=== PATIENT | female | born 2000 | race Two or more races ===

== ENCOUNTER 2024-07-21 15:01 | Emergency (ER) | payer MEDICAID, OTHER ==
[~2024-07-21] VITALS: Ht 167.6 cm; Wt 68.0 kg
[2024-07-21] MEDS: SODIUM CHLORIDE 0.9% 1,000 ML IV ONE (15:30)
--- NOTE | 2024-07-21 15:38 | ED.PDOC ---
GI ASSESSMENT HPI Comments HPI: Poor Historian. 24-year-old female presents to emergency department for one day history of left- sided abdominal pain constant nonradiating no alleviating or precipitating factors. She points to her left upper quadrant area and somewhat left mid abdomen as well. Patient states having associated nausea and vomiting no nbilious nonbloody. Denies any other acute symptoms. Patient is otherwise healthy. Patient denies . Onset of symptoms yesterday. Past Medcial History: Denies any Past Surgical History: Tonsillectomy REVIEW OF SYSTEMS: CONSTITUTIONAL: Denies acute: fever, diaphoresis, chills, HEAD: Denies acute: headache, photophobia Eyes: Denies acute: Double vision, vision loss, eye pain, eye discharge. EARS: Denies acute: tinnitus, hearing loss, ear discharge, ear pain, THROAT: Denies acute: sore throat, swelling, difficulty swallowing , pain with swallowing, change in voice. NECK: Denies acute: neck pain, neck swelling, stiff neck. HEART: Denies acute : chest pain, palpitations, LUNGS: Denies acute: SOB, wheezing, cough, hemoptysis ABDOMEN: Denies acute: diarrhea, melena , hematemesis, hematochezia SKIN: Denies acute: rash, redness, lesions, itchiness. EXTREMITIES: Denies acute: calf pain, numbness, tingling, weakness, denies pain in extremity. Denies acute: Low back pain. Neuro: Denies acute: focal neurological deficit, motor or sensory focal neurological deficit, tremors, seizure like activity, confusion, dizziness, change in mental status, loss of bowel or bladder function, cauda equina like symptoms. : Denies acute: dysuria, hematuria, flank pain, increase in urinary frequency. PSYCH: Denies acute: hallucination, suicidal ideation, homicidal ideation. FEMALE: Denies acute: abnormal vaginal bleeding, foul odor, unusual discharge. PHYSICAL EXAM: General: no acute distress, awake and alert. Head: normocephalic, atraumatic. Neck: supple, trachea is midline, no swelling. Throat: Normal phonation. Eyes:, no erythema, no purulent discharge, no proptosis, no icterus. Heart: regular rate, regular rhythm, no significant murmur appreciated. Lungs: no apparent respiratory distress, Able to speak in full sentences. No wheezing, no rhonchi, no crackles. No stridors Clear to auscultation bilaterally. Abdomen: Left upper quadrant and left mid abdomen tender to palpation, non distended, soft, no guarding, no rebound, + bowel sounds. Neuro: Awake, Alert, oriented to name, self, situation, follows commands GCS=15. Speech is normal. Skin: no petechia, no purpura, no cyanosis, non-pale, not jaundice. Lower extremities: --no - Pitting edema no deformity, no focal swelling, no calf TTP. Makes eye contact. moves all four extremities. Face: no apparent facial droop. No CVA tenderness to percussion bilaterally. Ambulating in the ED independently. Chief Complaint: Abdominal Pain Time Seen by MD: 15:20 Reviewed Notes: Nurses Notes, Medications, Allergies Allergies: Coded Allergies: NO KNOWN ALLERGIES (Unverified , 07/21/24) Home Meds Active Scripts Ondansetron Odt 4MG Tab (ZOFRAN PO) 4 Mg Tb, 4 MG PO Q8HPRN PRN for 3 Days, #9 TAB ODT TAB-DISSOLVE IN MOUTH, THEN SWALLOW Prov:DARNELL CHANCE DO 07/21/24 Information Source: Patient Mode of Arrival: Ambulatory Was a procedure done? Was a procedure done?: No X-Ray, Labs, Meds, VS Vital Signs Date Time Temp Pulse Resp B/P (MAP) Pulse Ox O2 Delivery O2 Flow Rate FiO2 07/21/24 18:44 98.2 96 18 101/76 (84) 100 98.2 07/21/24 17:55 98.2 89 16 129/76 (93) 99 98.2 07/21/24 16:40 98.4 77 16 124/78 (93) 97 98.4 07/21/24 16:40 77 16 98 Room Air 07/21/24 15:52 98.1 87 16 118/80 (93) 98 Lab Test 07/21/24 23:14 07/21/24 15:34 07/21/24 15:15 Range/Units White Blood Count 13.6 H 15.0 H 4.4-10.8 10^3/uL Red Blood Count 4.59 4.81 4.0-5.20 10^6/uL Hemoglobin 13.5 14.2 12.2-16.2 g/dL Hematocrit 41.3 43.1 36.0-46.0 % Mean Corpuscular Volume 90.1 89.5 80.0-100.0 fL Mean Corpuscular Hemoglobin 29.4 29.5 28.0-32.0 pg Mean Corpuscular Hemoglobin Concent 32.6 33.0 32.0-36.0 g/dL Red Cell Distribution Width 12.6 12.6 11.8-14.3 % Platelet Count 419 408 140-450 10^3/uL Mean Platelet Volume 7.5 7.4 6.9-10.8 fL Neutrophils (%) (Auto) 86.8 H 90.1 H 37.0-80.0 % Lymphocytes (%) (Auto) 9.2 L 7.1 L 10.0-50.0 % Monocytes (%) (Auto) 3.7 2.4 0.0-12.0 % Eosinophils (%) (Auto) 0.0 0.0 0.0-7.0 % Basophils (%) (Auto) 0.3 0.4 0.0-2.0 % Neutrophils # (Auto) 11.8 H 13.5 H 1.6-8.6 10 ^3/uL Lymphocytes # (Auto) 1.3 1.1 0.4-5.4 10 ^3/uL Monocytes # (Auto) 0.5 0.4 0-1.3 10 ^3/uL Eosinophils # (Auto) 0 0 0-0.8 10 ^3/uL Basophils # (Auto) 0 0.1 0-0.2 10 ^3/uL Nucleated Red Blood Cells 0.0 0.0 % Sodium Level 136 136-145 mmol/L Potassium Level 4.5 3.5-5.1 mmol/L Chloride Level 101 98-107 mmol/L Carbon Dioxide Level 24 20-31 mmol/L Anion Gap 11 5-15 Blood Urea Nitrogen 14 9-23 mg/dL Creatinine 0.84 0.550-1.02 mg/dL Glomerular Filtration Rate Calc 100 >90 mL/min BUN/Creatinine Ratio 16.7 10.0-20.0 Serum Glucose 102 74-106 mg/dL Lactic Acid Level 1.4 0.4-2.0 mmol/L Calcium Level 10.5 H 8.7-10.4 mg/dL Total Bilirubin 0.7 0.2-1.0 mg/dL Aspartate Amino Transferase (AST) 28 13-40 U/L Alanine Aminotransferase (ALT) 39 7-40 U/L Alkaline Phosphatase 90 46-116 U/L Troponin I High Sensitivity < 3 L </=34 ng/L Total Protein 8.0 5.7-8.2 g/dL Albumin 5.0 H 3.2-4.8 g/dL Lipase 36 12-53 U/L Urine Color Yellow Yellow Urine Clarity Turbid H Clear Urine pH 5.5 5.0-9.0 Urine Specific [place] 1.027 1.001-1.035 Urine Protein Trace H Negative Urine Ketones 4+ H Negative Urine Blood 1+ H Negative /uL Urine Nitrite Negative Negative Urine Bilirubin Negative Negative Urine Urobilinogen Normal Negative mg/dL Urine Leukocyte Esterase Trace Negative /uL Urine RBC 3 0 - 4 /hpf Urine WBC 5 0 - 5 /hpf Urine Squamous Epithelial Cells Mod <5 /hpf Urine Bacteria None seen None Seen /hpf Urine Mucus Few None Seen Urine Glucose Normal Normal mg/dL Urine Test Negative Negative Urine Opiates Screen Neg NEGATIVE Urine Fentanyl Screen Neg NEGATIVE Urine Barbiturates Screen Neg NEGATIVE Urine Phencyclidine Screen Neg NEGATIVE Urine Amphetamines Screen Neg NEGATIVE Urine Benzodiazepines Screen Neg NEGATIVE Urine Cocaine Screen Neg NEGATIVE Urine Cannabinoids Screen Pos NEGATIVE Current Medications Medications (Trade) Dose Ordered Sig/Pennie Route Start Time Stop Time Status Last Admin Sodium Chloride 1,000 ml @ 1,000 mls/hr Q1H ONCE IV 07/21/24 15:30 07/21/24 16:29 DC 07/21/24 15:30 Ondansetron HCl (Zofran) 8 mg ONCE ONCE IV 07/21/24 15:30 07/21/24 15:31 DC 07/21/24 16:36 Ceftriaxone Sodium 50 ml @ 100 mls/hr ONCE ONCE IV 07/21/24 18:00 07/21/24 18:29 DC 07/21/24 18:18 Acetaminophen/ Hydrocodone Bitart ([place] 5/325MG Tab) 1 tab ONCE ONCE PO 07/21/24 18:00 07/21/24 18:08 DC 07/21/24 18:15 Ketorolac Tromethamine (Toradol Injection) 30 mg ONCE ONCE IV 07/21/24 22:00 07/21/24 22:01 DC 07/21/24 21:59 [facility] [address] [facility] [address] Ph: [phone] DIAGNOSTIC IMAGING Diagnostic Imaging Report : [id number] Signed PATIENT: MARIBEL BRAVO ACCT: [id number] UNIT: [id number] : 2000 LOC: ER ROOM / BED: / AGE / SEX: 24 / F ADM STATUS: REG ER SERVICE 1523 ORDERING PHYSICIAN: DARNELL CHANCE DO PROCEDURE(s): ABPL - CT AB PEL WO CON-NO ORAL OR IV REASON: L sided abd pain ORDER NUMBER(s): [id number], ACCESSION NUMBER(s): [id number] CT ABDOMEN AND PELVIS WITHOUT CONTRAST CLINICAL HISTORY: L sided abd pain TECHNIQUE: Multiple contiguous axial images of the abdomen and pelvis without intravenous contrast. The images were reformatted degenerate coronal and sagittal reconstructions. All CT scans at this medical facility are performed using dose modulation techniques as appropriate to a performed exam including the following:Automated exposure control was utilized; adjustment of the MA and/or KV according to patient size; and use of iterative reconstruction technique. Radiation Dose Information: CT Dose: CTDI volume is 7 mGy. Dose-length product is 363 mGy*cm Comparison: None FINDINGS: Evaluation of the abdomen and pelvis is limited without intravenous contrast. The liver, gallbladder, pancreas, kidneys, adrenal glands, and spleen appear within normal limits. There is no gross evidence of abdominal lymphadenopathy. There is no free fluid or free air. The stomach grossly appears unremarkable. The small and large bowel loops demonstrate normal caliber. There are scattered diverticula in the colon without evidence of acute diverticulitis. The abdominal aorta and IVC appear within normal limits. The bladder appears unremarkable for the degree of distention. Pelvic organ appears within normal limits. There is no gross evidence of a pelvic mass. There is free fluid in the cul-de-sac. Lung bases are clear. There is no acute osseous abnormality. IMPRESSION: 1. Nonspecific free fluid in the pelvic cul-de-sac. 2. Otherwise, there is no acute process in the abdomen and pelvis. HS:Y ATED BY: ANTONIO CISNEROS MD DICTATED DATE/TIME: 07/21/24 9758 SIGNED BY: ANTONIO CISNEROS MD SIGNED DATE/TIME: 07/21/24 1734 CC: Time of 1ST Reevaluation: 22:24 Reevaluation 1ST: Improved Time of 2ND Reevaluation: 00:08 Reevaluation 2ND: Resolved Patient Education/Counseling: Diagnosis, Treatment Family Education/Counseling: Other Comments MDM: Patient presented with the above HPI.----- L sided abdominal pain -workup was initiated. patient was found with the above mentioned diagnosis. The following tests / medications were ordered: [place], blood culture, Rocephin, urine test, Zofran, IV fluids, CT abdomen and pelvis w/o contrast, EKGx1, drug screen, lipase,lactic acid, troponin x1, UA, CMP, CBC, urine , Patient ED course and VS have been stabilized. Patient has been reassessed in the ED and remained in a stable condition. Patient has been observed in the ED adequate length of time to insure improvement/stability. Escalation of care considered: Consideration of escalation to observation or admission. patient was ADMITTED to the medicine team for further evaluation and treatment of their presentation. patient was DISCHARGED after further evaluation and treatment of their presentation. All the reports of any imaging studies that were ordered by myself were reviewed by myself. Departure 1 Departure Time of Disposition: 22:24 Impression: Primary Impression: Abdominal pain Additional Impression: Nausea and vomiting Disposition: HOME / SELF CARE / HOMELESS Condition: Stable Additional Instructions: Additional discharge instructions: You MUST follow-up with your primary care/family doctor in 1 to 2 days. If you are unable to see your primary care/family doctor, please return to our emergency room for re-assessment and re-evaluation in 1 to 2 days. Return to the emergency room here in our facility or to the nearest ER [facility] if your symptoms change or worsen. CONSULTATIONS: you MUST Follow-up for consultation as soon as possible with: .-gastroenterology and OB Gyne doctor in 1-2 days. Please call for appointment. You MUST call the consultants office yourself to make an appointment. You may need to arrange that through your insurance and/or your primary/family doctor. If you are unable to see the supervisor home energy consultant in 1 to 2 days, you must return to our emergency room (or any other ER of your choice) for re-assessment and re- evaluation. Adequate fluid hydration. Avoid fatty greasy spicy food. Avoid caffeinated products with avoid NSAIDs. Below is a copy of your radiological report for follow up: [place] [address] Ph: [phone] DIAGNOSTIC IMAGING Diagnostic Imaging Report : [id number] Signed PATIENT: MARIBEL BRAVO ACCT: [id number] UNIT: [id number] : 2000 LOC: ER ROOM / BED: / AGE / SEX: 24 / F ADM STATUS: REG ER SERVICE 1523 ORDERING PHYSICIAN: DARNELL CHANCE DO PROCEDURE(s): ABPL - CT AB PEL WO CON-NO ORAL OR IV REASON: L sided abd pain ORDER NUMBER(s): [id number], ACCESSION NUMBER(s): [id number] CT ABDOMEN AND PELVIS WITHOUT CONTRAST CLINICAL HISTORY: L sided abd pain TECHNIQUE: Multiple contiguous axial images of the abdomen and pelvis without intravenous contrast. The images were reformatted degenerate coronal and sagittal reconstructions. All CT scans at this medical facility are performed using dose modulation techniques as appropriate to a performed exam including the following:Automated exposure control was utilized; adjustment of the MA and/or KV according to patient size; and use of iterative reconstruction technique. Radiation Dose Information: CT Dose: CTDI volume is 7 mGy. Dose-length product is 363 mGy*cm Comparison: None FINDINGS: Evaluation of the abdomen and pelvis is limited without intravenous contrast. The liver, gallbladder, pancreas, kidneys, adrenal glands, and spleen appear within normal limits. There is no gross evidence of abdominal lymphadenopathy. There is no free fluid or free air. The stomach grossly appears unremarkable. The small and large bowel loops demonstrate normal caliber. There are scattered diverticula in the colon without evidence of acute diverticulitis. The abdominal aorta and IVC appear within normal limits. The bladder appears unremarkable for the degree of distention. Pelvic organ appears within normal limits. There is no gross evidence of a pelvic mass. There is free fluid in the cul-de-sac. Lung bases are clear. There is no acute osseous abnormality. IMPRESSION: 1. Nonspecific free fluid in the pelvic cul-de-sac. 2. Otherwise, there is no acute process in the abdomen and pelvis. HS:Y ATED BY: ANTONIO CISNEROS MD DICTATED DATE/TIME: 07/21/241733 SIGNED BY: ANTONIO CISNEROS MD SIGNED DATE/TIME: 07/21/241733 CC: e-Prescriptions Ondansetron Odt 4MG Tab (ZOFRAN PO) 4 Mg Tb 4 MG PO Q8HPRN PRN for 3 Days, #9 TAB ODT TAB-DISSOLVE IN MOUTH, THEN SWALLOW Prov: DARNELL CHANCE DO 07/21/24 Discharged With: Self Critical Care Note Critical Care Time?: No I personally scribed for DARNELL CHANCE DO ([email or web address]) on 07/21/24 at 21:09. Electronically submitted by Rafa Donaldson ([email or web address]). DARNELL CHANCE DO Jul 21, 2024 15:38
[2024-07-21 15:44] LABS: Basophils # (auto) 0.1 10 ^3/uL (0-0.2); Basophils % (auto) 0.4 % (0.0-2.0); Eosinophils # (auto) 0 10 ^3/uL (0-0.8); Hematocrit 43.1 % (36.0-46.0); Hemoglobin 14.2 g/dL (12.2-16.2); Lymphocytes # (auto) 1.1 10 ^3/uL (0.4-5.4); Lymphocytes % (auto) 7.1 % (10.0-50.0); Mean Corpuscular Hemoglobin 29.5 pg (28.0-32.0); Mean Corpuscular Volume 89.5 fL (80.0-100.0); Monocytes # (auto) 0.4 10 ^3/uL (0-1.3); Monocytes % (auto) 2.4 % (0.0-12.0); Neutrophils # (auto) 13.5 10 ^3/uL (1.6-8.6); Neutrophils % (auto) 90.1 % (37.0-80.0); Platelet Count (auto) 408 10^3/uL (140-450); Red Blood Cells 4.81 10^6/uL (4.0-5.20); Red Cell Distribution Width 12.6 % (11.8-14.3)
[2024-07-21 15:56] LABS: Urine Bacteria None Seen /hpf (None Seen)
[2024-07-21 16:03] LABS: Alanine Aminotransferase 39 U/L (7-40); Alkaline Phosphatase 90 U/L (46-116); Anion Gap 11 (5-15); Aspartate Aminotransferase 28 U/L (13-40); BUN/Creatinine Ratio 16.7 (10.0-20.0); Blood Urea Nitrogen 14 mg/dL (9-23); Carbon Dioxide 24 mmol/L (20-31); Chloride 101 mmol/L (98-107); Glucose 102 mg/dL (74-106); Potassium 4.5 mmol/L (3.5-5.1)
[2024-07-21 16:04] LABS: Bilirubin, Total 0.7 mg/dL (0.2-1.0)
[2024-07-21 16:07] LABS: Calcium 10.5 mg/dL (8.7-10.4); Sodium 136 mmol/L (136-145)
[2024-07-21 16:19] LABS: Lipase 36 U/L (12-53)
[2024-07-21] MEDS: ONDANSETRON HCL 4 MG/2 ML VIAL IV ONE (16:36)
[2024-07-21 16:47] LABS: Urine Blood 1+ /uL (Negative); Urine Clarity Turbid (Clear); Urine Color Yellow (Yellow); Urine Mucus FEW (None Seen); Urine Protein, UAD TRACE (Negative); Urine Specific Gravity 1.027 (1.001-1.035); Urine Squamous Epithelial Cell MOD /hpf (<5); Urine Urobilinogen Normal (Negative); Urine WBC 5 /hpf (0 - 5); Urine pH 5.5 (5.0-9.0)
[2024-07-21 17:00] LABS: Amphetamine Screen, Urine Neg (NEGATIVE); Barbiturate Scree,Urine Neg (NEGATIVE); Benzodiazephine Screen, Urine Neg (NEGATIVE); Cannabinoid Screen, Urine Pos (NEGATIVE); Cocaine Screen, Urine Neg (NEGATIVE); Opiate Scree,Urine Neg (NEGATIVE); Phencyclidine Screen, Urine Neg (NEGATIVE)
--- NOTE | 2024-07-21 17:35 | DVH ---
CT ABDOMEN AND PELVIS WITHOUT CONTRAST CLINICAL HISTORY: L sided abd pain TECHNIQUE: Multiple contiguous axial images of the abdomen and pelvis without intravenous contrast. The images were reformatted degenerate coronal and sagittal reconstructions. All CT scans at this medical facility are performed using dose modulation techniques as appropriate t o a performed exam including the following:Automated exposure control was utilized; adjustment of the MA and/or KV according to patient size; and use of iterative reconstruction technique. Radiation Dose Information: CT Dose: CTDI volume is 7 mGy. Dose-length product is 363 mGy*cm Comparison: None FINDINGS: Evaluation of the abdomen and pelvis is limited without intravenous contrast. The liver, gallbladder, pancreas, kidneys, adrenal glands, and spleen appear within normal limits. There is no gross evidence of abdominal lymphadenopathy. There is no free fluid or free air. The stomach grossly appears unremarkable. The small and large bowel loops demonstrate normal caliber . There are scattered diverticula in the colon without evidence of acute diverticulitis. The abdominal aorta and IVC appear within normal limits. The bladder appears unremarkable for the degree of distention. Pelvic organ appears within normal pop its. There is no gross evidence of a pelvic mass. There is free fluid in the cul-de-sac. Lung bases are clear. There is no acute osseous abnormality. IMPRESSION: 1. Nonspecific free fluid in the pelvic cul-de-sac. 2. Otherwise, there is no acute process in the abdomen and pelvis. HS:Y
[2024-07-21] MEDS: HYDROcodone-ACET 5/325MG TAB PO ONE (18:15)
[2024-07-21] MEDS: cefTRIAXone 1GM/50ML D5W 50 ML IV ONE (18:18)
[2024-07-21 18:44] VITALS: TEMP 98.2
[2024-07-21] MEDS: KETOROLAC TROMETH 30 MG/ML 1ML VIAL IV ONE (21:59)
[2024-07-21] MEDS ORDERED: ZOFR4T PO (22:25)
[2024-07-21 23:37] LABS: Basophils # (auto) 0 10 ^3/uL (0-0.2); Basophils % (auto) 0.3 % (0.0-2.0); Eosinophils # (auto) 0 10 ^3/uL (0-0.8); Hematocrit 41.3 % (36.0-46.0); Hemoglobin 13.5 g/dL (12.2-16.2); Lymphocytes # (auto) 1.3 10 ^3/uL (0.4-5.4); Lymphocytes % (auto) 9.2 % (10.0-50.0); Mean Corpuscular Hemoglobin 29.4 pg (28.0-32.0); Mean Corpuscular Hgb Conc. 32.6 g/dL (32.0-36.0); Mean Corpuscular Volume 90.1 fL (80.0-100.0); Monocytes # (auto) 0.5 10 ^3/uL (0-1.3); Monocytes % (auto) 3.7 % (0.0-12.0); Neutrophils # (auto) 11.8 10 ^3/uL (1.6-8.6); Neutrophils % (auto) 86.8 % (37.0-80.0); Platelet Count (auto) 419 10^3/uL (140-450); Red Blood Cells 4.59 10^6/uL (4.0-5.20); Red Cell Distribution Width 12.6 % (11.8-14.3); White Blood Cell 13.6 10^3/uL (4.4-10.8)
[2024-07-22 00:35] VITALS: BP 132/86; PULSE 80; RESP 16; O2SAT 97
== END 2024-07-22 00:53 | disposition home or self-care (01) ==
LOC: ER 15:01 → EDBD 15:01 → ER 07-22 00:53
DX: R10.12 Left upper quadrant pain (principal); R11.2 Nausea with vomiting, unspecified; Z90.89 Acquired absence of other organs; Z79.899 Other long term (current) drug therapy; Z32.02 Encounter for pregnancy test, result negative
CPT/HCPCS: 36415; 74176; 80053; 80307; 81001; 81025; 83605; 83690; 84484; 85025; 87040; 96361; 96365; 96375; 99285; J0696; J1885; J2405; J7030